=== PATIENT | male | born 1970 | race Caucasian/White ===

== ENCOUNTER 2017-09-13 08:35 | Emergency (ER) | END 2017-09-13 09:50 | disposition home or self-care (01) ==

== ENCOUNTER 2019-02-12 18:58 | Emergency (ER) | payer MEDICAID ==
[~2019-02-12] VITALS: Ht 165.1 cm; Wt 72.0 kg
[~2019-02-12 18:58] MED LIST: CYCL10TA7 PO; IBUP-1561 PO
[2019-02-12 19:01] VITALS: Ht 165.1 cm; Wt 72.0 kg
--- NOTE | 2019-02-12 19:17 | ERD ---
ER Documentation Chief Complaint Chief Complaint R ear and facial pain x 2 weeks not relieved with OTC medications HPI 48-year-old male, previously healthy, presents to the emergency 2 weeks with persistent sharp pain in the right ear. The patient has been taking [id number]-[id number] medications without improvement of the symptoms. He denies fever, chills, no ear discharge. The patient also reports mild sore throat but not difficulty swallowing. ROS All systems reviewed and are negative except as per history of present illness. Medications Home Meds Active Scripts Ibuprofen* (Motrin*) 600 Mg Tab, 600 MG PO TID PRN for PAIN AND OR ELEVATED TEMP, #20 TAB Prov:SUMIT LOZA MD 02/12/19 Ofloxacin Otic (Ofloxacin Otic) 5 Ml Drops, 5 DROP RIGHT EAR BID for 10 Days, #1 BOTTLE Prov:SUMIT LOZA MD 02/12/19 Ibuprofen* (Motrin*) 400 Mg Tab, 400 MG PO Q6H PRN for PAIN AND OR ELEVATED TEMP, #30 TAB Prov:UVALDO GAMINO PA-C 09/13/17 Cyclobenzaprine Hcl* (Cyclobenzaprine Hcl*) 10 Mg Tablet, 10 MG PO TID, #30 TAB Prov:UVALDO GAMINO PA-C 09/13/17 Allergies Allergies: Coded Allergies: No Known Allergy (Unverified , 02/12/19) PMhx/Soc Medical and Surgical Hx: pt denies Medical Hx, pt denies Surgical Hx History of Surgery: No Anesthesia Reaction: No Hx Neurological Disorder: No Hx Respiratory Disorders: No Hx Cardiac Disorders: No Hx Psychiatric Problems: No Hx Miscellaneous Medical Probl: No Hx Alcohol Use: No Hx Substance Use: No Hx Tobacco Use: No Smoking Status: Never smoker Physical Exam Vitals Vital Signs Date Temp Pulse Resp B/P (MAP) Pulse Ox O2 O2 Flow FiO2 Time Delivery Rate 02/12/19 97.8 63 16 154/90 98 19:01 (111) Physical Exam Patient alert, oriented, vital signs stable. HEENT: Normocephalic, atraumatic. EYES: PERRLA, EOMI, Sclera and conjunctiva appear normal. EARS: Right ear with significant erythema and edema of the canal, mild opacity of the tympanic membrane, no middle ear effusion. Contralateral ear normal. THROAT: Erythematous oropharynx. NECK: Supple, No lymphadenopathy. Full ROM without pain or tenderness. HEART: RRR, no rubs, murmurs, clicks or gallops. LUNGS: Clear to auscultation. ABDOMEN: Soft, non-tender without masses or hepatosplenomegaly. EXTREMITIES: No edema bilaterally. BACK: Full ROM, no deformity, normal back exam NEURO: Cranial nerves grossly intact, no motor or sensory deficit Procedures/MDM Vital signs stable, differential diagnosis include but not limited to: infection bacterial/viral/fungal. Tonsillitis, eustachian dysfunction, allergies, foreign body, cholesteatoma. Less likely mastoiditis, malignant otitis, meningitis. Physical examination and clinical presentation consistent most likely with right otitis externa During the ED course the patient remained stable, no new complaints. Clinical impression discussed with patient who agrees with management. The patient is stable to be treated outpatient and will be discharged home with a Rx for antibiotics and ibuprofen. Some side effects of prescribed medications (headache, rash, nausea, vomiting, diarrhea, interactions with other medications) were reviewed. The patient was instructed to follow up with the primary care provider in the next 48h. If symptoms persist, worsen or new symptoms develop, then patient should return to the ED immediately. Disclaimer: Inadvertent spelling and grammatical errors are likely due to EHR/dictation software use and do not reflect on the overall quality of patient care. Also, please note that the electronic time recorded on this note does not necessarily reflect the actual time of the patient encounter. Departure Diagnosis: Primary Impression: Right otitis externa Condition: Stable Patient Instructions: External Ear Infection (Adult) Additional Instructions: Muchas sajan por [facility] para najera servicio. Esperamos que en najera visita a la sasha de emergencia najera problema medico haya sido solucionado y que se sienta mucho mejor. Para estar seguros que najera mejoria sigue en proceso, le pedimos el favor de hacer dinah brad de seguimiento medico con najera doctor primario en los proximos 2-4 hinojosa. Lleve con usted estos documentos y las medicinas recetadas. Si wong sintomas empeoran, NO SE ESPERE, por favor regrese a sasha de emergencia INMEDIATAMENTE. En francine que usted no tenga un mdico de atencin primaria: Llame al mdico o clnica comunitaria de referencia que aparece abajo lori las horas de consultorio para hacer dinah brad para que le vean. CLINICAS: [facility] [phone] [facility] [phone] [id number] [facility] [phone] [facility] [phone] [facility] [phone] [id number] [facility]. [phone] SUMIT SETHI MD Feb 12, 2019 19:17
[2019-02-12] MEDS ORDERED: IBUP-1542 PO (19:19)
[2019-02-12] MEDS ORDERED: OFLO5DRO7 RIGHT EAR (19:19)
[2019-02-12 19:33] VITALS: BP 148/85; PULSE 58; RESP 18
== END 2019-02-12 19:34 | disposition home or self-care (01) ==
LOC: FTE 18:58
DX: H60.91 Unspecified otitis externa, right ear (principal)
CPT/HCPCS: 99283